=== PATIENT | female | born 1985 | race Caucasian/White ===

== ENCOUNTER 2019-08-30 18:48 | Emergency (ER) | payer OTHER ==
[2019-08-30] MEDS ORDERED: KETOROLAC 30 MG/ML 1 ML VIAL IVP STA (19:26)
--- NOTE | 2019-08-30 19:49 | ED ---
Chest Pain HPI - General Chief Complaint: Chest Pain Stated Complaint: chest pain Time Seen by Provider: 08/30/19 19:00 Source: patient, RN notes reviewed Mode of arrival: ambulatory Limitations: no limitations - History of Present Illness Initial Comments: Is a 34 female with a benign past medical history who presents with complaints of sharp midsternal mostly left-sided chest pain increases with forward movement and bending increase with deep breathing increases certain movements. 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 Pain is described as sharp about 6/10 severity at rest and 8/10 with movements. Stress he gets worse with deep breathing. No cough no phlegm production the patient is a nonsmoker her last menstrual period was with the last couple weeks. She denies any chance of denies any risk factors. Patient has any history of cardiac ablation. This was done 2013 she has had no trouble with that aspect since MD Complaint: chest pain - Related Data Home Medications Medication Instructions Recorded Confirmed Cyanocobalamin (Vitamin B-12) 1,000 mcg PO DAILY 08/30/19 08/30/19 [Vitamin B-12] buPROPion HCL [Wellbutrin XL] 150 mg PO DIRECTED 08/30/19 08/30/19 Previous Rx's Medication Instructions Recorded Ibuprofen 800 mg PO Q6HR PRN #20 tablet 08/30/19 Allergies Allergy/AdvReac Type Severity Reaction Status Date / Time Penicillins Allergy Rash/Hives Verified 08/30/19 20:00 Review of Systems ROS Statement: Those systems with pertinent positive or pertinent negative responses have been documented in the HPI. ROS Other: All systems not noted in ROS Statement are negative. EKG Findings - EKG Results: EKG: interpreted by ERMD (Sinus rhythm with short UT interval the rate was 64. Interval 98 QRS duration 84 QT since QTC 424/[address]-T wave changes.) Past Medical History Past Medical History: No Reported History History of Any Multi-Drug Resistant Organisms: None Reported Additional Past Surgical History / Comment(s): cardiac ablation for PVC's Past Psychological History: No Psychological Hx Reported Smoking Status: Never smoker Past Alcohol Use History: None Reported, Occasional Past Drug Use History: None Reported General Exam - General Exam Comments Initial Comments: This is a well-developed well-nourished awake alert oriented 3 female Limitations: no limitations General appearance: alert, in no apparent distress Head exam: Present: atraumatic, normocephalic, normal inspection Eye exam: Present: normal appearance, PERRL, EOMI. Absent: scleral icterus, conjunctival injection, periorbital swelling ENT exam: Present: normal exam, mucous membranes moist Neck exam: Present: normal inspection. Absent: tenderness, meningismus, lymphadenopathy Respiratory exam: Present: normal lung sounds bilaterally, chest wall tenderness (Reproducible tenderness palpation along the costosternal margins bilaterally no step-off or crepitation.). Absent: respiratory distress, wheezes, rales, rhonchi, stridor Cardiovascular Exam: Present: regular rate, normal rhythm, normal heart sounds. Absent: systolic murmur, diastolic murmur, rubs, gallop, clicks GI/Abdominal exam: Present: soft, normal bowel sounds. Absent: distended, tenderness, guarding, rebound, rigid Extremities exam: Present: normal inspection, full ROM, normal capillary refill. Absent: tenderness, pedal edema, joint swelling, calf tenderness Back exam: Present: normal inspection Neurological exam: Present: alert, oriented X3, CN II-XII intact Psychiatric exam: Present: normal affect, normal mood Skin exam: Present: warm, dry, intact, normal color. Absent: rash Course Vital Signs 08/30/19 08/30/19 19:18 20:10 Temperature 98 F Pulse Rate 68 Respiratory 18 18 Rate Blood Pressure 113/74 O2 Sat by Pulse 98 Oximetry Chest Pain MDM - MDM The patient is feeling improved after the IV pain medication. X-rays negative E KGs are unremarkable the patient's presentation consistent with costochondritis and chest wall pain. Patient will be discharged on appropriate medication Disposition Clinical Impression: Costochondritis, Chest wall syndrome Disposition: HOME SELF-CARE Condition: Good Instructions (If sedation given, give patient instructions): Costochondritis (ED) Additional Instructions: Medication prescription sent to your preferred pharmacy Prescriptions: Ibuprofen 800 mg PO Q6HR PRN #20 tablet PRN Reason: Pain Is patient prescribed a controlled substance at d/c from ED?: No Referrals: Nonstaff,Physician [Primary Care Provider] - 1-2 days
--- NOTE | 2019-08-30 19:49 | XR ---
EXAMINATION TYPE: XR chest 2V DATE OF EXAM: 08/30/2019 COMPARISON: NONE HISTORY: Chest pain TECHNIQUE: Frontal and lateral views of the chest are obtained. FINDINGS: There is no focal air space opacity. No evidence for pneumothorax. No pleural effusion. The cardiac silhouette size is within normal limits. The osseous structures are grossly intact. IMPRESSION: 1. No acute cardiopulmonary process.
[2019-08-30 19:50] LABS: HCT 40.3 % (34.0-46.0); HGB 13.6 gm/dL (11.4-16.0); MCH 30.7 pg (25.0-35.0); MCHC 33.7 g/dL (31.0-37.0); Mean Platelet Volume 6.5; Platelet Count 280 k/uL (150-450); RBC 4.42 m/uL (3.80-5.40); RDW 12.1 % (11.5-15.5); WBC 7.3 k/uL (3.8-10.6)
[2019-08-30 20:01] LABS: ALT 27 U/L (9-52); AST 25 U/L (14-36); African American GFR (CKD) >90 (>60 ml/min/1.73 sqM); Albumin 4.5 g/dL (3.5-5.0); Alkaline Phosphatase 69 U/L (38-126); Anion Gap 5 mmol/L; Blood Urea Nitrogen 10 mg/dL (7-17); Calcium 9.6 mg/dL (8.4-10.2); Carbon Dioxide 24 mmol/L (22-30); Chloride 106 mmol/L (98-107); Glucose 75 mg/dL (74-99); Magnesium 1.9 mg/dL (1.6-2.3); Non-African American GFR(CKD) >90 (>60 ml/min/1.73 sqM); Potassium 3.5 mmol/L (3.5-5.1); Sodium 135 mmol/L (137-145); Total Bilirubin 0.5 mg/dL (0.2-1.3); Total Protein 7.2 g/dL (6.3-8.2)
[2019-08-30 20:12] LABS: D-Dimer <0.17 mg/L FEU (<0.60); INR 1.1 (<1.2); Partial Thromboplastin Time 25.1 sec (22.0-30.0); Prothrombin Time 11.2 sec (9.0-12.0)
[2019-08-30 21:06] LABS: Eosinophils # (M) 0.15 k/uL (0-0.7); Lymphocytes # (M) 2.77 k/uL (1.0-4.8); Monocytes # (M) 0.51 k/uL (0-1.0); Neutrophils # (M) 3.87 k/uL (1.3-7.7); Neutrophils % (M) 53 %; Nucleated Red Blood Cells 0 /100 WBC (0-0); Total Cells Counted 100
[2019-08-30 21:31] VITALS: BP 110/70; PULSE 60; RESP 16; TEMP 98.9
== END 2019-08-30 21:29 | disposition home or self-care (01) ==
LOC: EC 18:48
DX: M94.0 Chondrocostal junction syndrome [Tietze] (principal); I49.3 Ventricular premature depolarization; Z98.890 Other specified postprocedural states; Z79.899 Other long term (current) drug therapy; Z88.0 Allergy status to penicillin
CPT/HCPCS: 36415; 93005; 85379; 80053; 83690; 83735; 84484; 85025; 85610; 85730; 71046; 99284; 96374; J1885

== ENCOUNTER → 2019-11-10 | Outpatient (CLI) | payer OTHER ==
[2019-11-10 12:53] LABS: Basophils % (A) 1 %; Eosinophils # (A) 0.2 k/uL (0-0.7); Eosinophils % (A) 3 %; HCT 42.3 % (34.0-46.0); HGB 13.7 gm/dL (11.4-16.0); Lymphocytes # (A) 1.4 k/uL (1.0-4.8); Lymphocytes % (A) 28 %; MCH 29.9 pg (25.0-35.0); MCHC 32.3 g/dL (31.0-37.0); MCV 92.5 fL (80.0-100.0); Mean Platelet Volume 7.5; Monocytes # (A) 0.3 k/uL (0-1.0); Monocytes % (A) 7 %; Neutrophils # (A) 2.9 k/uL (1.3-7.7); Neutrophils % (A) 58 %; Platelet Count 328 k/uL (150-450); RBC 4.57 m/uL (3.80-5.40); RDW 11.9 % (11.5-15.5)
--- NOTE | 2019-11-10 13:05 | XR ---
EXAMINATION TYPE: XR lumbar spine 2 or 3V DATE OF EXAM: 11/10/2019 CLINICAL HISTORY: Chronic low back pain TECHNIQUE: Frontal and lateral images of the lumbar spine are obtained. COMPARISON: None FINDINGS: There is a levoscoliosis of the lumbar spine. There are 5 lumbar type vertebral bodies radha ntified. The lumbar spine shows satisfactory alignment without evidence of acute fracture or disloca tion. Vertebral body heights are within normal limits. Mild intervertebral disc space narrowing is se en at L4-L5. IMPRESSION: 1. No acute fracture is seen in the lumbar spine. Minimal degenerative change at L4-L5 with slight merissa int space narrowing. 2. Levoscoliosis of the lumbar spine.
[2019-11-10 19:26] LABS: ALT 19 U/L (8-44); AST 19 U/L (13-35); African American GFR (CKD) 111.5 (60.0-200.0); Albumin/Globulin Ratio 2.59 (1.60-3.17); Alkaline Phosphatase 84 U/L (41-126); BUN/Creat Ratio 16.25 Ratio (12.00-20.00); Bilirubin, Conjugated <0.20 mg/dL (0.20-0.40); Calcium 9.2 mg/dL (8.7-10.3); Carbon Dioxide 23.9 mmol/L (21.6-31.8); Chloride 107 mmol/L (96-109); Chol/HDL Ratio 3.21; Cholesterol 186 mg/dL (0-200); Globulin 1.7 g/dL (1.6-3.3); Glucose 80 mg/dL (70-110); LDL Cholesterol,Calculated 113.6 mg/dL (0.0-131.0); Non-African American GFR(CKD) 96.2 (60.0-200.0); Potassium 4.1 mmol/L (3.5-5.5); Sodium 140 mmol/L (135-145); Total Bilirubin 0.3 mg/dL (0.2-1.2); Total Protein 6.1 g/dL (6.2-8.2)
== END | disposition home or self-care (01) ==
LOC: LABWHC1 10:53
PROVIDERS: ATTEND Family Medicine
DX: M99.73 Connective tissue and disc stenosis of intervertebral foramina of lumbar region (principal); M47.816 Spondylosis without myelopathy or radiculopathy, lumbar region; M41.86 Other forms of scoliosis, lumbar region; Z00.00 Encounter for general adult medical examination without abnormal findings
CPT/HCPCS: 36415; 72100; 80053; 80061; 82248; 84439; 84443; 85025